=== PATIENT | female | born 1970 | race Hispanic/Latino ===

== ENCOUNTER 2016-05-05 07:16 | Emergency (ER) | payer OTHER ==
[2016-05-05] MEDS ORDERED: DILAUDID 1 MG/ML AMP ONE (08:03)
== END 2016-05-05 09:20 | disposition home or self-care (01) ==
LOC: ER 07:16
DX: S39.012A Strain of muscle, fascia and tendon of lower back, initial encounter (principal)
CPT/HCPCS: 72100; 81001; 87088; 96372; 99284; J1170